=== PATIENT | female | born 1980 | race Caucasian/White ===

== ENCOUNTER → 2021-03-01 | Outpatient (CLI) | payer BC ==
--- NOTE | 2021-03-02 19:37 | CARD ---
MR#: [id number] Date of Study: 03/01/2021 Ordering Physician: EZEKIEL PARKER, Referring Physician: EZEKIEL PARKER Tech: APPROVED REPORT Reason : Patient complained of pain PROCEDURE The patient underwent an Exercise Stress Test using the Hakeem Protocol. Blood pressure, heart rate, a nd EKG were monitored. An Echocardiogram was performed by industrial safety and health technician in four stages in quad fashion. At peak stress four se lected images were obtained and placed side by side with resting images for comparison. STRESS ECHO FINDINGS The resting Echocardiogram showed normal left ventricular systolic contractility with an estimated Ej ection Fraction of about 55 %. The Resting Echocardiogram showed normal augmentation of myocardial wall segments using a 16 segment model. The Stress Echocardiogram showed normal augmentation of myocardial wall segments using a 16 segment m micaela. The Stress Echocardiogram left ventricular systolic contractility has an estimated Ejection Fraction of about 70%. Test Type: Exercise Stress Nurse/Tech: Mariangel Valdez R.N. Test Indications: JAVIER Cardiac History and Allergies: covid Medications: none Medical History: none Resting ECG: SR Resting Heart Rate: 77 bpm Resting Blood Pressure: 90/32mmHg Pretest Chest Pain: No chest pain Nurse/Tech Notes lungs cta Stress Symptoms No chest pain or symptoms. POST EXERCISE Reason for Termination: Reached target heart rate Target HR: Yes Max HR: 165 bpm 92% of Maximum Predicted HR: 180 bpm Exercise duration: 12:41 min:sec, 5 Stage Exercise capacity: 12.8METs Max Blood Pressure: 142/76mmHg Blood Pressure response to exercise: Normal blood pressure response during stress. Heart Rate response to exercise: normal Chest Pain: No. Arrhythmia: No. ST Change: No. INTERPRETATION Stress EKG Conclusion: No evidence of stress induced EKG changes. STRESS ECG Stress EKG shows no significant changes. <Conclusion> Normal baseline EKG and echocardiogram with ejection fraction of 55%. Excellent exercise capacity at 12.8 METS achieved. No evidence of stress-induced ischemia on EKG. Appropriate augmentation with stress with ejection fraction of 70% and no evidence of wall motion abn ormalities. Overall low risk study. Signed by : Tom Del Rosario, Electronically Approved : 03/02/2021 19:36:26
== END ==
LOC: ECHO 12:39
PROVIDERS: ATTEND Internal Medicine Cardiovascular Disease
DX: R06.00 Dyspnea, unspecified (principal)
CPT/HCPCS: 93017; 93350